=== PATIENT | female | born 2000 | race Two or more races ===

== ENCOUNTER 2018-08-14 18:05 | Emergency (ER) | payer SELFPAY ==
[~2018-08-14] VITALS: Ht 154.9 cm; Wt 40.8 kg
[2018-08-14 18:13] VITALS: BP 107/74
[2018-08-14] MEDS ORDERED: IBUPROFEN 800 MG TAB PO ONE (19:15)
== END 2018-08-14 19:45 | disposition home or self-care (01) ==
LOC: ER 18:05
DX: M94.0 Chondrocostal junction syndrome [Tietze] (principal)
CPT/HCPCS: 71101